=== PATIENT | male | born 1960 | race Caucasian/White ===

== ENCOUNTER 2021-08-08 12:52 | Inpatient (IN) | payer OTHER, SELFPAY ==
--- NOTE | ~2021-08-08 | XR_ITS ---
EXAMINATION: XR finger 1st RT min 2V EXAM DATE: 08/08/2021 13:34 INDICATION: Smashing Injury, Redness, Swelling. TECHNIQUE: Right 1st finger frontal, lateral and oblique projections obtained and reviewed. There ar e no prior studies for comparison. FINDINGS: There are no acute fractures or dislocations identified. There is no subcutaneous gas. T he soft tissue is unremarkable. There are no radiopaque foreign bodies. IMPRESSION: No acute osseous findings. Reviewed, dictated and finalized at location A. OLOGY NURSE IMPRESSION: No acute osseous findings.
--- NOTE | ~2021-08-08 | US_ITS ---
EXAMINATION: US abdomen limited DATE: 08/09/2021 08:34 INDICATION: Abnormal liver function tests. TECHNIQUE: Multiple grayscale and Doppler ultrasound images of the abdomen were obtained. COMPARISON: None FINDINGS: The visualized portions of the head of the pancreas are normal. The liver is normal without focal lesion. No liver surface nodularity. There is normal flow in main portal vein. The gallbladde r is normal in size. No gallstones or gallbladder wall thickening. There was no sonographic Zayas si gn. The common duct is normal and measures 5 mm. IMPRESSION: 1. Normal right upper quadrant ultrasound. Reviewed, dictated and finalized at location A. ERGARTNER
[2021-08-08 12:55] VITALS: BP 150/78; PULSE 111; RESP 20; TEMP 36.5; O2SAT 100
--- NOTE | 2021-08-08 13:19 | ED.UPPEXIN ---
HPI - Extremity Injury (Upper) General Chief Complaint: Extremity Injury, Upper Stated Complaint: smashed thumb Time Seen by Provider: 08/08/21 13:06 Source: patient Mode of arrival: ambulatory Limitations: no limitations History of Present Illness HPI narrative: Patient is 61 years old had right thumb injury from a pile of wound lost their arrangement and somehow his finger got stuck. 4 days ago, 1 day later the thumb started getting swollen with severe pain. Today have some discharge from the thumb and red streak going all the way up to the armpit. Patient is not diabetic, does not take medicine at home, uses marijuana, drink alcohol Related Data Allergies Allergy/AdvReac Type Severity Reaction Status Date / Time No Known Allergies Allergy Verified 08/08/21 13:11 Review of Systems Review of Systems: CONSTITUTIONAL: Denies fever, chills, or sweats. EYES: Denies visual changes, redness, or discharge. ENT: Denies rhinorrhea, congestion, sore throat, or otalgia. CARDIOVASCULAR: Denies chest pain, palpitations, or edema. RESPIRATORY: Denies cough or dyspnea. GASTROINTESTINAL: Denies abdominal pain, nausea, vomiting, or diarrhea. GENITOURINARY: Denies dysuria or hematuria. SKIN: Denies rash or itching. MUSCULOSKELETAL: Denies back pain, joint pain, or myalgia. NEUROLOGIC: Denies headache, numbness, or weakness. PSYCHIATRIC: Denies anxiety or depression. [facility] Past Medical History Medical History No pertinent past medical history Surgical History Surgical History No pertinent past surgical history Family History Family History (Updated 08/08/21 @ 15:59 by BRIANA Adames) Mother Diabetes mellitus Heart disease Hypertension Father Diabetes mellitus Heart disease Hypertension Social History Social History (Updated 08/08/21 @ 16:04 by BRIANA Adames) Social History: Patient lives in the house he grew up in and is currently fixing it up. He lives alone and has no pets. He does dabble in a lot of social activities. He admits to drink beer about 24 beers a week or more. He also smoke marijuana every day about 1 OZ a month, and uses other fun drugs like speed and others about monthly or holidays. He did state that he usually gets together with his friends after work. He designates his sister as his surrogate, and wishes to be a full code. Smoking status: Never smoker Alcohol intake: current Drinks per week: 24 Alcohol use details: about every other day 6+ Substance use: current Substance use type: marijuana Other substance usage details: Speed and other monthly/holidays. 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 Gender identity (if verbalized by the patient): Male Sexual Orientation (if Verbalized by the Patient): Straight or Heterosexual Spiritual care concerns: No Agree to blood products: Yes Exam Narrative: General appearance: Well-developed, well-nourished Skin: Normal color, right thumb showed diffuse swelling, erythema, serosanguineous discharge dorsally, erythematous changes, red streaks going up to the right arm PIT Head: Normocephalic, nontraumatic Eyes: Clear conjunctiva ENT: Oropharynx normal, ears normal, nose normal Neck: Supple, nontender Chest and respiratory: Airway patent, no respiratory distress, no accessory muscle use Heart: Regular rate/rhythm Abdomen: Soft, nontender, no organomegaly, quiet bowel sounds Vascular: Normal peripheral pulses, normal capillary refill. Musculoskeletal: Normal range of motion, nontender back Neurologic: Alert and oriented ?3, DATABASE SECURITY EXPERT is normal as tested, no gross motor deficit
[2021-08-08 13:21] LABS: Basophils Percent Auto 0.3 % (0.2-1.2); Eosinophils Absolute Auto 0.1 K/mm3 (0-0.3); Eosinophils Percent Auto 0.9 % (0-4.4); Hematocrit 48.9 % (42.0-52.0); Hemoglobin 16.6 g/dL (14.0-18.0); Immature Granulocyte Absolute 0.04 K/mm3 (0.00-0.031); Immature Granulocyte Percent A 0.3 % (0-0.5); Lymphocytes Absolute Auto 1.52 K/mm3 (0.9-3.2); Lymphocytes Percent Auto 12.8 % (18.3-44.2); Mean Corpuscular HGB Conc 33.9 g/dl (32-36); Mean Corpuscular Hemoglobin 32.7 pg (26-34); Mean Corpuscular Volume 96.3 fl (80-100); Mean Platelet Volume 9.9 fl (7.4-10.4); Monocytes Absolute Auto 1.2 K/mm3 (0.1-0.6); Monocytes Percent Auto 9.8 % (2.6-8.5); Neutrophils Percent Auto 75.9 % (45.5-73.1); Platelet Count Result 145 k/mm3 (150-375); Red Blood Count 5.08 M/mm3 (4.6-6.20); Red Cell Distribution Width 13.5 % (11.5-14.5); White Blood Count 11.9 K/mm3 (4.5-10.0)
[2021-08-08 13:31] LABS: Alanine Aminotransferase 112 U/L (4-50); Albumin Level 4.4 g/dL (3.5-5.1); Alkaline Phosphatase 92 U/L (38-126); Anion Gap 9 mmol/L (8-16); Aspartate Amino Transferase 115 U/L (17-59); Bilirubin,Total 0.6 mg/dL (0.2-1.3); Blood Urea Nitrogen 15 mg/dL (9-20); Calcium 8.4 mg/dL (8.4-10.2); Carbon Dioxide 28 mmol/L (22-30); Chloride 98 mmol/L (98-107); Estimated CRCL calculation 92 ml/min; Estimated Glomerular Filt Rate > 60; Glucose 122 mg/dL (65-110); Potassium 3.8 mmol/L (3.4-5.0); Sodium 135 mmol/L (137-145)
[2021-08-08] MEDS: TETANUS,DIPHTHERIA,AC PERTUSSIS ADULT (0.5 ML) BOOSTRIX IM (15:09)
--- NOTE | 2021-08-08 15:50 | PM.IMHP ---
H&P: HPI History of Present Illness Date/Time: 08/08/21 15:15 Chief Complaint: Thumb pain with radiation Narrative: Patient is a 61 year old male with no significant medical history that present to the ED for evaluation of the left thumb. He stated that he was working on his house and remodelling. He was moving some 2x4 when he smashed his thumb between two boards. He stated that it really just started to swell up, and to relieve the pressure he was taking a needle that he previously popped a pimple on his knee with dipped in Neosporin and would poke it into his finger to relieve the pressure. He stated that it was doing ok, until about when it was appearing worse. He stated that it started with severe pain. He noticed that he was developing redness tracking up his arm into the armpit and down starting on the chest. He was experiencing some sweats and chills lately. He currently rate his pain a 9/10 and it feels like needles are going in and out of his thumb. He has not taken anything or treating it with anything. He denies chest pain, shortness of breath, nausea, vomiting, diarrhea, constipation, weakness, fatigue, cough, dizziness, lightheadedness, numbness or tingling. Patient will be admitted to the hospital service under observation Review of Systems Review of Systems: All systems reviewed & are unremarkable except as noted in HPI and below PMFSH Past Medical History Medical History No pertinent past medical history Surgical History Surgical History No pertinent past surgical history Family History Family History Mother Diabetes mellitus Heart disease Hypertension Father Diabetes mellitus Heart disease Hypertension Social History Social History (Updated 08/08/21 @ 16:04 by BRIANA Adames) Social History: Patient lives in the house he grew up in and is currently fixing it up. He lives alone and has no pets. He does dabble in a lot of social activities. He admits to drink beer about 24 beers a week or more. He also smoke marijuana every day about 1 OZ a month, and uses other fun drugs like speed and others about monthly or holidays. He did state that he usually gets together with his friends after work. He designates his sister as his surrogate, and wishes to be a full code. Smoking status: Never smoker Alcohol intake: current Drinks per week: 24 Alcohol use details: about every other day 6+ Substance use: current Substance use type: marijuana Other substance usage details: Speed and other monthly/holidays. 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 Gender identity (if verbalized by the patient): Male Sexual Orientation (if Verbalized by the Patient): Straight or Heterosexual Spiritual care concerns: No Agree to blood products: Yes Meds Home Medications and Allergies Allergies Allergy/AdvReac Type Severity Reaction Status Date / Time No Known Allergies Allergy Verified 08/08/21 13:11 Vital Signs Vital Signs - 24 hr 08/08/21 12:55 Temperature 97.7 F Pulse Rate 111 H Respiratory Rate 20 Blood Pressure 150/78 H Pulse Oximetry 100 Exam Const: General: cooperative, no acute distress, well developed, alert, awake and uncomfortable Nutritional Appearance: average body habitus and well nourished Orientation/consciousness: oriented to person, oriented to place, oriented to time and patient oriented x3 Limitations: physical limitations (finger pain) HENMT: Head: normal to inspection Ears: hearing grossly normal bilaterally General nose exam: Normal external nose present Mouth: Yes Normal oral an
[2021-08-08 16:00] VITALS: BP 109/68; PULSE 89; RESP 20; TEMP 36.3; O2SAT 94
--- NOTE | 2021-08-08 16:10 | ECG_ITS ---
Measurements Intervals [place] Rate: 63 P: 55 CA: 170 QRS: 29 QRSD: 134 T: 20 QT: 405 QTc: 417 Interpretive Statements SINUS RHYTHM POSSIBLE LEFT ATRIAL ENLARGEMENT RIGHT BUNDLE BRANCH BLOCK BASELINE ARTIFACT- V4 ABNORMAL ECG Electronically Signed On 08-08-2021 20:18:23 CONCRETE PRODUCTS MACHINE OPERATOR by Ramin Cruz D.O.
--- NOTE | 2021-08-08 18:49 | PC.NURSE ---
This patient, Nadine Velarde, was admitted to 3 [facility] Surg Room 325-01. Patient/family oriented to hospital policies and general routines including ID bracelet, bed and alarms, visiting hours, pain management, procedures, bathroom and other care routines, personal items, smoking policy, room service/diet, and visiting hours. Information on how to activate the Rapid Response Team has been discussed. Patient/Family are encouraged to report perceived risks to care and to ask questions if they do not understand what they are told or what they should do.
[2021-08-08 18:50] VITALS: BMI 30.4
[2021-08-08 19:38] VITALS: BP 125/85; PULSE 88; TEMP 36.3; O2SAT 94
[2021-08-08 20:46] LABS: Hepatitis B Surface Antigen Negative (Negative)
[2021-08-08 20:51] LABS: HAV RESULT Negative (Negative); Hepatitis B Core IgM Result Negative (Negative)
[2021-08-08 21:03] LABS: Hepatitis C Virus Antibody Negative (Negative)
[2021-08-08 21:56] VITALS: BP 124/68; PULSE 97; RESP 22; TEMP 36.8; O2SAT 95
[2021-08-09 05:40] VITALS: BP 118/79; PULSE 69; RESP 18; TEMP 36.3; O2SAT 95
[2021-08-09 06:05] LABS: Basophils Absolute Auto 0.1 K/mm3 (0.0-0.1); Basophils Percent Auto 0.6 % (0.2-1.2); Eosinophils Absolute Auto 0.2 K/mm3 (0-0.3); Eosinophils Percent Auto 2.7 % (0-4.4); Hematocrit 44.1 % (42.0-52.0); Hemoglobin 15.4 g/dL (14.0-18.0); Immature Granulocyte Absolute 0.04 K/mm3 (0.00-0.031); Immature Granulocyte Percent A 0.5 % (0-0.5); Lymphocytes Absolute Auto 1.53 K/mm3 (0.9-3.2); Lymphocytes Percent Auto 17.3 % (18.3-44.2); Mean Corpuscular HGB Conc 34.9 g/dl (32-36); Mean Corpuscular Hemoglobin 32.6 pg (26-34); Mean Corpuscular Volume 93.4 fl (80-100); Mean Platelet Volume 9.9 fl (7.4-10.4); Monocytes Absolute Auto 1.1 K/mm3 (0.1-0.6); Monocytes Percent Auto 12.7 % (2.6-8.5); Neutrophils Absolute Auto 5.9 K/mm3 (1.3-6.7); Neutrophils Percent Auto 66.2 % (45.5-73.1); Platelet Count Result 171 k/mm3 (150-375); Red Blood Count 4.72 M/mm3 (4.6-6.20); Red Cell Distribution Width 13.5 % (11.5-14.5); White Blood Count 8.8 K/mm3 (4.5-10.0)
[2021-08-09 06:18] LABS: Alanine Aminotransferase 145 U/L (4-50); Albumin Level 3.6 g/dL (3.5-5.1); Alkaline Phosphatase 100 U/L (38-126); Anion Gap 3 mmol/L (8-16); Aspartate Amino Transferase 112 U/L (17-59); Bilirubin,Total 0.4 mg/dL (0.2-1.3); Blood Urea Nitrogen 13 mg/dL (9-20); Carbon Dioxide 28 mmol/L (22-30); Chloride 104 mmol/L (98-107); Estimated CRCL calculation 105 ml/min; Estimated Glomerular Filt Rate > 60; Glucose 95 mg/dL (65-110); Lactic Acid Reflex 0.6 mmol/L (0.7-2.1); Magnesium 2.1 mg/dL (1.6-2.3); Potassium 4.1 mmol/L (3.4-5.0); Sodium 135 mmol/L (137-145)
[2021-08-09 08:00] VITALS: PULSE 78; O2SAT 95
[2021-08-09] MEDS: THIAMINE HCL 100 MG TABLET PO (09:04)
[2021-08-09] MEDS: FOLIC ACID 1 MG TABLET PO (09:04)
--- NOTE | 2021-08-09 10:45 | PM.IMPN ---
Progress Note: A&P Assessment and Plan (1) Thumb injury: Code(s): S69.90XA - Unspecified injury of unspecified wrist, hand and finger(s), initial encounter Status: Acute Assessment and Plan: Right thumb injury from 2x4s Purulent drainage Red tracking up to the armpit however it does not go onto the chest that is warm to touch Blood cultures pending Wound culture found moderate WBC and mixed bacterial sweetie Wound care consult Dr. Charles consulted thank you for your help Vanc and cefepime on board WBC 8.8 Trend wound findings. (2) Transaminitis: Code(s): R74.01 - Elevation of levels of liver transaminase levels Status: Acute Assessment and Plan: AST/ALT 112/145 Hep panel negative RUQ ultrasound Normal right upper quadrant ultrasound. (3) Tachycardia: Code(s): R00.0 - Tachycardia, unspecified Status: Acute Assessment and Plan: HR is 78 Probably pain induced Could be an underlying arrhythmia EKG ordered (4) HTN (hypertension): Code(s): I10 - Essential (primary) hypertension Status: Acute Assessment and Plan: BP is 118/79 Trend BP No history Consider adding therapy if indicated (5) ETOH abuse: Code(s): F10.10 - Alcohol abuse, uncomplicated Status: Acute Assessment and Plan: Roughly 24 drinks a week Folic acid and thiamine ordered [facility] Librium Ativan PRN (6) Marijuana abuse: Code(s): F12.10 - Cannabis abuse, uncomplicated Status: Acute Assessment and Plan: Daily use Cessation education given Time Spent With Patient Time with patient: Greater than 35 minutes Subjective Date/time seen: 08/09/21 10:45 Interval history: Date/Time: 08/08/21 15:15 Narrative: Patient is a 61 year old male with no significant medical history that present to the ED for evaluation of the left thumb. He stated that he was working on his house and remodelling. He was moving some 2x4 when he smashed his thumb between two boards. He stated that it really just started to swell up, and to relieve the pressure he was taking a needle that he previously popped a pimple on his knee with dipped in Neosporin and would poke it into his finger to relieve the pressure. He stated that it was doing ok, until about when it was appearing worse. He stated that it started with severe pain. He noticed that he was developing redness tracking up his arm into the armpit and down starting on the chest. He was experiencing some sweats and chills lately. He currently rate his pain a 9/10 and it feels like needles are going in and out of his thumb. He has not taken anything or treating it with anything. He denies chest pain, shortness of breath, nausea, vomiting, diarrhea, constipation, weakness, fatigue, cough, dizziness, lightheadedness, numbness or tingling. Date/Time 08/09/22 1045 Patient's main concern was taking a shower. He did state that his thumb was a 10/10. Wound nurse was in the room and there was a lot of purulent drainage from the thumb. He did deny any chest pain, shortness of breath, nausea, vomiting, diarrhea, constipation, weakness or fatigue. He did also state that he wanted something to poke into the wound to relieve him of the pressure. He is currently sitting on the side of the bed with no complaints other than back pain. Red track has went down. Review of Systems Review of Systems: All systems reviewed & are unremarkable except as noted in HPI and below Exam Const: General: cooperative, no acute distress, well developed, alert, awake and uncomfortable Nutritional Appearance: average body habitus and well nourished Orientation/consciousness: oriented to person, oriented to place, oriented to time and patient oriented x3 Limitations: physical limitations (finger pain) HENMT: Head: normal to inspection Ears: hearing grossly blaise
[2021-08-09 14:00] VITALS: BP 121/82; PULSE 88; RESP 18; TEMP 36.6; O2SAT 98
--- NOTE | 2021-08-09 18:05 | WPDCN ---
Assessment and Plan Assessment and plan (1) Laceration of right thumb with infection: Code(s): S61.011A - Laceration without foreign body of right thumb without damage to nail, initial encounter; L08.9 - Local infection of the skin and subcutaneous tissue, unspecified Status: Acute Assessment and Plan: Will elevate or remove the thumb nail, at the bedside, to promote drainage and dressing care. Continue vanco. Mepilex Ag dressing daily. HPI Data of Consult Date/Time: 08/09/21 18:05 Requesting Physician: David Baca MD Primary Care Provider: TURNING MACHINE OPERATOR PHYSICIAN Consult Narrative Narrative: Nadine Velarde is a 61 year old male with an infection in his right thumb. This the 5th post injury day and the 4th since pain and swelling began. Cause was a crush laceration from a piece of timber that rolled onto his thumb. He tried to clean and treat this himself but presented with drainage and lymphangitis last tight. His WBC was aroungd 12 and has normalized after IV vancomycin was started. The thumb is draining form the dorsal nail fold area where the skin is macerated and bruised. The nail is present but there appears to be pus beneath it that can be drained out the laceration with pressure at the tip. The thumb is swollen and macerated at the dorsal distal phalanx. ROM is intact. Generally well perfused. Lymphangitis up to the axilla with lymphadenopathy. X-ray did not reveal any bone injury. [facility] Past Medical History Medical History No pertinent past medical history Surgical History Surgical History No pertinent past surgical history Family History Family History Mother Diabetes mellitus Heart disease Hypertension Father Diabetes mellitus Heart disease Hypertension Social History Social History (Updated 08/08/21 @ 16:04 by BRIANA dAames) Social History: Patient lives in the house he grew up in and is currently fixing it up. He lives alone and has no pets. He does dabble in a lot of social activities. He admits to drink beer about 24 beers a week or more. He also smoke marijuana every day about 1 OZ a month, and uses other fun drugs like speed and others about monthly or holidays. He did state that he usually gets together with his friends after work. He designates his sister as his surrogate, and wishes to be a full code. Smoking status: Never smoker Alcohol intake: current Drinks per week: 24 Alcohol use details: about every other day 6+ Substance use: current Substance use type: marijuana Other substance usage details: Speed and other monthly/holidays. 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 Gender identity (if verbalized by the patient): Male Sexual Orientation (if Verbalized by the Patient): Straight or Heterosexual Spiritual care concerns: No Agree to blood products: Yes Meds Home Medications and Allergies Allergies Allergy/AdvReac Type Severity Reaction Status Date / Time No Known Allergies Allergy Verified 08/08/21 13:11 Vital Signs Vital Signs - 24 hr 08/08/21 19:38 08/08/21 21:56 08/09/21 05:40 Temperature 97.4 F L 98.3 F 97.4 F L Pulse Rate 88 97 69 Pulse Rate [Right Radial] Respiratory Rate 22 H 18 Blood Pressure 125/85 124/68 118/79 Pulse Oximetry 94 95 95 08/09/21 08:00 08/09/21 14:00 Temperature 98 F Pulse Rate 88 Pulse Rate [Right Radial] 78 Respiratory Rate 18 Blood Pressure 121/82 Pulse Oximetry 95 98 Results Labs CBC & Chem 7: 08/09/21 05:42 08/09/21 05:42 Labs: Short CBC 08/09/21 Range/Units 05:
--- NOTE | 2021-08-09 18:34 | W.PM.PROC2 ---
Procedure Note - Detailed Date of Procedure 08/09/21 Pre-op Diagnosis Right thumb infection Post-op Diagnosis same Procedure Performed Removal of right thumbnail for drainage Surgeon Konrad Charles MD Anesthesia local Description of Procedure The patient was in his hospital bed. He had signed consent for removal of the nail and drainage of purulence. The digit was blocked with 1% lidocaine with epinephrine. No prepping was done otherwise. Adequate anesthesia was obtained and the nail was removed with blunt separation of scissors under the nail plate. Removal of the nail from the macerated nail bed was accomplished without difficulty. No culture was sent. There was very little bleeding. The contused and macerated skin was copiously washed with saline wet gauze. This included under the nail fold. No bone was exposed. After cleaning the site a dressing was applied with Mepilex Ag and gauze. Tolerated well Drains No Packing No Pathology none sent Condition stable Disposition no change
[2021-08-09 20:00] VITALS: PULSE 70
[2021-08-09 21:44] VITALS: BP 113/70; PULSE 70; RESP 16; TEMP 36.8; O2SAT 99
[2021-08-10] VITALS (7 sets, daily range): BP systolic 113–120; BP diastolic 72–82; PULSE 60–99; RESP 16–20; TEMP 36.4–36.6; O2SAT 94–99
[2021-08-10 05:53] LABS: Basophils Absolute Auto 0.1 K/mm3 (0.0-0.1); Basophils Percent Auto 0.7 % (0.2-1.2); Eosinophils Absolute Auto 0.3 K/mm3 (0-0.3); Eosinophils Percent Auto 3.5 % (0-4.4); Hematocrit 46.8 % (42.0-52.0); Hemoglobin 15.9 g/dL (14.0-18.0); Immature Granulocyte Absolute 0.03 K/mm3 (0.00-0.031); Immature Granulocyte Percent A 0.4 % (0-0.5); Lymphocytes Absolute Auto 1.77 K/mm3 (0.9-3.2); Lymphocytes Percent Auto 24.7 % (18.3-44.2); Mean Corpuscular Hemoglobin 32.3 pg (26-34); Mean Corpuscular Volume 95.1 fl (80-100); Mean Platelet Volume 9.7 fl (7.4-10.4); Monocytes Absolute Auto 0.8 K/mm3 (0.1-0.6); Monocytes Percent Auto 10.5 % (2.6-8.5); Neutrophils Absolute Auto 4.3 K/mm3 (1.3-6.7); Neutrophils Percent Auto 60.2 % (45.5-73.1); Platelet Count Result 196 k/mm3 (150-375); Red Blood Count 4.92 M/mm3 (4.6-6.20); Red Cell Distribution Width 13.7 % (11.5-14.5); White Blood Count 7.2 K/mm3 (4.5-10.0)
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
[2021-08-10 06:09] LABS: Alanine Aminotransferase 163 U/L (4-50); Albumin Level 3.8 g/dL (3.5-5.1); Alkaline Phosphatase 114 U/L (38-126); Anion Gap 3 mmol/L (8-16); Aspartate Amino Transferase 100 U/L (17-59); Bilirubin,Total 0.6 mg/dL (0.2-1.3); Blood Urea Nitrogen 16 mg/dL (9-20); Calcium 8.6 mg/dL (8.4-10.2); Carbon Dioxide 27 mmol/L (22-30); Chloride 105 mmol/L (98-107); Estimated CRCL calculation 105 ml/min; Estimated Glomerular Filt Rate > 60; Glucose 97 mg/dL (65-110); Magnesium 2.2 mg/dL (1.6-2.3); Potassium 4.4 mmol/L (3.4-5.0); Sodium 135 mmol/L (137-145)
[2021-08-10] MEDS: MORPHINE SULFATE (*CRX) 4 MG/ML INJ (06:19)
[2021-08-10] MEDS: HYDROcodone/acetaminophen (*CRX) 5-325 MG TABLET 1 TAB PO ×3 (06:31→18:09)
[2021-08-10] MEDS: chlordiazePOXIDE (*CRX) 25 MG CAPSULE PO (06:31)
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
--- NOTE | 2021-08-10 09:30 | P.PNIM_ITS ---
Progress Note: A&P Assessment and Plan (1) Thumb injury: Code(s): S69.90XA - Unspecified injury of unspecified wrist, hand and finger(s), initial encounter Status: Acute Assessment and Plan: * Right thumb injury from 2x4s * Purulent drainage * Red tracking up to the armpit however it does not go onto the chest that is warm to touch * Blood cultures pending * Wound culture found moderate WBC and mixed bacterial sweetie * Wound care consult * Dr. Charles consulted thank you for your help * Vanc and cefepime on board * WBC 7.2 * Trend wound findings. (2) Transaminitis: Code(s): R74.01 - Elevation of levels of liver transaminase levels Status: Acute Assessment and Plan: * AST/ALT 100/163 * Hep panel negative * RUQ ultrasound Normal right upper quadrant ultrasound. (3) Tachycardia: Code(s): R00.0 - Tachycardia, unspecified Status: Acute Assessment and Plan: * HR is 60 * Probably pain induced * Could be an underlying arrhythmia * EKG ordered (4) HTN (hypertension): Code(s): I10 - Essential (primary) hypertension Status: Acute Assessment and Plan: * BP is 116/72 * Trend BP * No history * Consider adding therapy if indicated (5) ETOH abuse: Code(s): F10.10 - Alcohol abuse, uncomplicated Status: Acute Assessment and Plan: * Roughly 24 drinks a week * Folic acid and thiamine ordered * CIWA * Librium * Ativan PRN (6) Marijuana abuse: Code(s): F12.10 - Cannabis abuse, uncomplicated Status: Acute Assessment and Plan: * Daily use * Cessation education given Subjective Date/time seen: 08/10/2130 Interval history: Date/Time: 08/08/21 15:15 Narrative: Patient is a 61 year old male with no significant medical history that present to the ED for evaluation of the left thumb. He stated that he was working on his house and remodelling. He was moving some 2x4 when he smashed his thumb between two boards. He stated that it really just started to swell up, and to relieve the pressure he was taking a needle that he previously popped a pimple on his knee with dipped in Neosporin and would poke it into his finger to relieve the pressure. He stated that it was doing ok, until about w hen it was appearing worse. He stated that it started with severe pain. He noticed that he was developing redness tracking up his arm into the armpit and down starting on the chest. He was experiencing some sweats and chills lately. He currently rate his pain a 9/10 and it feels like needles are going in and out of his thumb. He has not taken anything or treating it with anything. He denies chest pain, shortness of breath, nausea, vomiting, diarrhea, constipation, weakness, fatigue, cough, dizziness, lightheadedness, numbness or tingling. Date/Time 08/09/21 1045 Patient's main concern was taking a shower. He did state that his thumb was a 10/10. Wound nurse was in the room and there was a lot of purulent drainage from the thumb. He did deny any chest pain, shortness of breath, nausea, vomiting, diarrhea, constipation, weakness or fatigue. He did also state that he wanted something to poke into the wound to relieve him of the pressure. He is currently sitting on the side of the bed with no complaints other than back pain. Red track has went down. Date/Time 08/09/21 0966 Patient was pretty upset today. Patient
[2021-08-10] MEDS: THIAMINE HCL 100 MG TABLET PO (09:36)
[2021-08-10] MEDS: FOLIC ACID 1 MG TABLET PO (09:36)
[2021-08-10 14:12] LABS: Vancomycin Trough 12.3 ug/mL (10.0-20.0)
[2021-08-10] MEDS: KETOROLAC 30 MG/ML VIAL (*BKC) IV PUSH (15:58)
[2021-08-11 05:26] VITALS: BP 105/71; PULSE 55; RESP 16; TEMP 36.4; O2SAT 97
[2021-08-11 05:57] LABS: Basophils Absolute Auto 0.1 K/mm3 (0.0-0.1); Basophils Percent Auto 0.9 % (0.2-1.2); Eosinophils Absolute Auto 0.3 K/mm3 (0-0.3); Eosinophils Percent Auto 5.3 % (0-4.4); Hematocrit 42.6 % (42.0-52.0); Hemoglobin 14.4 g/dL (14.0-18.0); Immature Granulocyte Absolute 0.09 K/mm3 (0.00-0.031); Immature Granulocyte Percent A 1.4 % (0-0.5); Lymphocytes Absolute Auto 2.02 K/mm3 (0.9-3.2); Lymphocytes Percent Auto 31.7 % (18.3-44.2); Mean Corpuscular HGB Conc 33.8 g/dl (32-36); Mean Corpuscular Hemoglobin 32.8 pg (26-34); Mean Platelet Volume 9.5 fl (7.4-10.4); Monocytes Absolute Auto 0.8 K/mm3 (0.1-0.6); Monocytes Percent Auto 11.8 % (2.6-8.5); Neutrophils Absolute Auto 3.1 K/mm3 (1.3-6.7); Neutrophils Percent Auto 48.9 % (45.5-73.1); Platelet Count Result 202 k/mm3 (150-375); Red Blood Count 4.39 M/mm3 (4.6-6.20); Red Cell Distribution Width 13.4 % (11.5-14.5); White Blood Count 6.4 K/mm3 (4.5-10.0)
[2021-08-11 06:07] LABS: Alanine Aminotransferase 102 U/L (4-50); Albumin Level 3.4 g/dL (3.5-5.1); Alkaline Phosphatase 90 U/L (38-126); Anion Gap 5 mmol/L (8-16); Aspartate Amino Transferase 50 U/L (17-59); Bilirubin,Total 0.1 mg/dL (0.2-1.3); Blood Urea Nitrogen 20 mg/dL (9-20); Calcium 8.3 mg/dL (8.4-10.2); Carbon Dioxide 26 mmol/L (22-30); Chloride 106 mmol/L (98-107); Estimated CRCL calculation 92 ml/min; Estimated Glomerular Filt Rate > 60; Glucose 121 mg/dL (65-110); Sodium 137 mmol/L (137-145)
[2021-08-11 08:18] LABS: Glucose Point of Care 100 mg/dl (65-105)
[2021-08-11] MEDS: THIAMINE HCL 100 MG TABLET PO (08:19)
[2021-08-11] MEDS: FOLIC ACID 1 MG TABLET PO (08:19)
[2021-08-11] MEDS: HYDROcodone/acetaminophen (*CRX) 5-325 MG TABLET 1 TAB PO ×3 (08:22→20:05)
--- NOTE | 2021-08-11 09:58 | WPDPN ---
Progress Note: A&P Assessment and Plan (1) Laceration of right thumb with infection: Code(s): S61.011A - Laceration without foreign body of right thumb without damage to nail, initial encounter; L08.9 - Local infection of the skin and subcutaneous tissue, unspecified Status: Acute Assessment and Plan: Improving. Will switch to oral antibiotics when discharged. Possibly tomorrow. Will continue with current wound care. He will follow up with Dr Charles outpatient. Time Spent With Patient Time with patient: less than 15 minutes Subjective Date/time seen: 08/11/21 09:58 Cellulitis/lymphangiitis resolving on current treatment. Pain decreased, still very tender at raw nail bed. Culture: Group A Strep, Sens. pending. Likely sensitive to cephalosporins. Objective Data Vital Signs Vital Signs: Vital Signs - 24 hr 08/10/21 14:00 08/10/21 19:41 08/10/21 21:58 Temperature 97.6 F 97.5 F L Pulse Rate 99 93 Respiratory Rate 20 16 Blood Pressure 113/76 120/82 Pulse Oximetry 97 99 98 08/11/21 05:26 Temperature 97.6 F Pulse Rate 55 L Respiratory Rate 16 Blood Pressure 105/71 Pulse Oximetry 97 Intake/Output Intake/Output: Intake & Output 08/08/21 08/09/21 08/10/21 08/11/21 23:59 23:59 23:59 23:59 Intake Total 650 2690 3380 1300 Output Total 600 Balance 650 2690 2780 1300 Meds/Results Medications: Active Medications Generic Name Dose Route Start Last Admin Trade Name Freq PRN Reason Stop Dose Admin Acetaminophen 1,000 mg 08/10/21 15:38 Acetaminophen 500 Mg Tablet PO Q6H PRN Mild Pain (1-3) or Fever Hydrocodone Bitart/Acetaminophen 1 tab 08/10/21 05:56 08/11/21 08:22 Hydrocodone/Acetaminophen (*Crx) 5-325 Mg Tablet PO 1 tab Q6H PRN Administration Pain Rated 4-6 Chlordiazepoxide HCl 25 mg 08/10/21 05:59 08/10/21 06:31 Chlordiazepoxide (*Crx) 25 Mg Capsule PO 25 mg Q6H PRN Administration Withdrawal Folic Acid 1 mg 08/09/21 09:00 08/11/21 08:19 Folic Acid 1 Mg Tablet PO 1 mg DAILY SAMUEL Administration Vancomycin HCl 1,500 mg in 500 mls @ 333.333 mls/hr 08/09/21 02:00 08/11/21 04:23 Vancomycin 1,500 Mg/D5w 500 Ml IVPB Infused Q12H SAMUEL Infusion Cefepime HCl 1 gm in 50 mls @ 100 mls/hr 08/09/21 02:00 08/11/21 09:38 Maxipime 1 Gm/D5w 50 Ml IVPB 100 mls/hr Q8H SAMUEL Administration Morphine Sulfate 2 mg 08/10/21 15:37 Morphine Sulfate (*Crx) 2 Mg/Ml Inj IV PUSH Q4H PRN Pain Rated 7-10 Ondansetron HCl 4 mg 08/08/21 15:44 Ondansetron Inj 4 Mg/2 Ml Vial IV PUSH Q4H PRN Nausea Silver 1 each 08/09/21 09:00 08/10/21 14:23 Silver Foam Band (Mepilex Ag 4x4) Bandage TOPICAL 1 each DAILY SAMUEL Administration Thiamine HCl 100 mg 08/09/21 09:00 08/11/21 08:19 Thiamine Hcl 100 Mg Tablet PO 100 mg QAM SAMUEL Administration Radiology Results: ITS Impressions Finger X-Ray 08/08/21 13:50 IMPRESSION: No acute osseous findings. Abdomen Ultrasound 08/09/21 08:42 IMPRESSION: 1. Normal right upper quadrant ultrasound. Labs Labs: Laboratory Results - last 24 hr 08/10/21 08/11/21 08/11/21 12:54 05:35 05:35 WBC 6.4 RBC 4.39 L Hgb 14.4 Hct 42.6 MCV 97.0 MCH 32.8 MCHC 33.8 RDW 13.4 Plt Count 202 MPV 9.5 Immature Gran % (Auto) 1.4 H Neut % (Auto) 48.9 Lymph % (Auto) 31.7 [place] % (Auto) 11.8 H Eos % (Auto) 5.3 H Baso % (Auto) 0.9 Lymph # (Auto) 2.02 [place] # (Auto) 0.8 H Eos # (Auto) 0.3 Baso # (Auto) 0.1 Abs Immat Gran (auto) 0.09 H Absolute Neuts (auto) 3.1 Absolute Nucleated RBC 0.0 Nucleated RBC % 0.0 Sodium 137 Potassium 4.0 Chloride 106 Carbon Dioxide 26 Anion Gap 5 L BUN 20 Creatinine 0.80 Estim Creat Clear Calc 92 Estimated GFR > 60 Glucose 121 H POC Capillary Glucose Calcium 8.3 L Magnesium 2.0 Ferritin T
[2021-08-11] MEDS: MORPHINE SULFATE (*CRX) 2 MG/ML INJ IV PUSH (11:20)
--- NOTE | 2021-08-11 11:22 | WPDPN ---
Progress Note: A&P Assessment and Plan (1) Laceration of right thumb with infection: Code(s): S61.011A - Laceration without foreign body of right thumb without damage to nail, initial encounter; L08.9 - Local infection of the skin and subcutaneous tissue, unspecified Status: Acute Assessment and Plan: Improvement on antibiotics and debridement as expected. Daily dressing change. Continue IV antibiotics. Check on culture results. Time Spent With Patient Time with patient: 15 - 25 minutes Subjective Date/time seen: 08/10/21 11:22 POD 1 removal of right thumb nail. Dressing change today. Erythema diminished as well as decrease in right axillary lymph node tenderness. No javier pus at dorsal thumb. Granulation tissue starting. ROM intact. Objective Data Vital Signs Vital Signs: Vital Signs - 24 hr 08/10/21 14:00 08/10/21 19:41 08/10/21 21:58 Temperature 97.6 F 97.5 F L Pulse Rate 99 93 Respiratory Rate 20 16 Blood Pressure 113/76 120/82 Pulse Oximetry 97 99 98 08/11/21 05:26 Temperature 97.6 F Pulse Rate 55 L Respiratory Rate 16 Blood Pressure 105/71 Pulse Oximetry 97 Intake/Output Intake/Output: Intake & Output 08/08/21 08/09/21 08/10/21 08/11/21 23:59 23:59 23:59 23:59 Intake Total 650 2690 3380 1300 Output Total 600 Balance 650 2690 2780 1300 Meds/Results Medications: Active Medications Generic Name Dose Route Start Last Admin Trade Name Freq PRN Reason Stop Dose Admin Acetaminophen 1,000 mg 08/10/21 15:38 Acetaminophen 500 Mg Tablet PO Q6H PRN Mild Pain (1-3) or Fever Hydrocodone Bitart/Acetaminophen 1 tab 08/10/21 05:56 08/11/21 08:22 Hydrocodone/Acetaminophen (*Crx) 5-325 Mg Tablet PO 1 tab Q6H PRN Administration Pain Rated 4-6 Chlordiazepoxide HCl 25 mg 08/10/21 05:59 08/10/21 06:31 Chlordiazepoxide (*Crx) 25 Mg Capsule PO 25 mg Q6H PRN Administration Withdrawal Folic Acid 1 mg 08/09/21 09:00 08/11/21 08:19 Folic Acid 1 Mg Tablet PO 1 mg DAILY SAMUEL Administration Vancomycin HCl 1,500 mg in 500 mls @ 333.333 mls/hr 08/09/21 02:00 08/11/21 04:23 Vancomycin 1,500 Mg/D5w 500 Ml IVPB Infused Q12H SAMUEL Infusion Cefepime HCl 1 gm in 50 mls @ 100 mls/hr 08/09/21 02:00 08/11/21 09:38 Maxipime 1 Gm/D5w 50 Ml IVPB 100 mls/hr Q8H SAMUEL Administration Morphine Sulfate 2 mg 08/10/21 15:37 08/11/21 11:20 Morphine Sulfate (*Crx) 2 Mg/Ml Inj IV PUSH 2 mg Q4H PRN Administration Pain Rated 7-10 Ondansetron HCl 4 mg 08/08/21 15:44 Ondansetron Inj 4 Mg/2 Ml Vial IV PUSH Q4H PRN Nausea Silver 1 each 08/09/21 09:00 08/11/21 11:22 Silver Foam Band (Mepilex Ag 4x4) Bandage TOPICAL 1 each DAILY SAMUEL Administration Thiamine HCl 100 mg 08/09/21 09:00 08/11/21 08:19 Thiamine Hcl 100 Mg Tablet PO 100 mg QAM SAMUEL Administration Radiology Results: ITS Impressions Finger X-Ray 08/08/21 13:50 IMPRESSION: No acute osseous findings. Abdomen Ultrasound 08/09/21 08:42 IMPRESSION: 1. Normal right upper quadrant ultrasound. Labs Labs: Laboratory Results - last 24 hr 08/10/21 08/11/21 08/11/21 12:54 05:35 05:35 WBC 6.4 RBC 4.39 L Hgb 14.4 Hct 42.6 MCV 97.0 MCH 32.8 MCHC 33.8 RDW 13.4 Plt Count 202 MPV 9.5 Immature Gran % (Auto) 1.4 H Neut % (Auto) 48.9 Lymph % (Auto) 31.7 [place] % (Auto) 11.8 H Eos % (Auto) 5.3 H Baso % (Auto) 0.9 Lymph # (Auto) 2.02 [place] # (Auto) 0.8 H Eos # (Auto) 0.3 Baso # (Auto) 0.1 Abs Immat Gran (auto) 0.09 H Absolute Neuts (auto) 3.1 Absolute Nucleated RBC 0.0 Nucleated RBC % 0.0 Sodium 137 Potassium 4.0 Chloride 106 Carbon Dioxide 26 Anion Gap 5 L BUN 20 Creatinine 0.80 Estim Creat Clear Calc 92 Estimated GFR > 60 Glucose 121 H POC Capillary Glucose Calcium 8.3 L Magnesium
--- NOTE | 2021-08-11 11:55 | PM.IMPN ---
Progress Note: A&P Assessment and Plan (1) Thumb injury: Code(s): S69.90XA - Unspecified injury of unspecified wrist, hand and finger(s), initial encounter Status: Acute Assessment and Plan: Right thumb injury from 2x4s Purulent drainage Red tracking up to the armpit however it does not go onto the chest that is warm to touch Wound culture Group A streptococcus isolated, Raoultella Ornithinolytica Wound care consult Dr. Charles consulted thank you for your help Vanc and cefepime on board, look to be able to be switched to PO antibiotics at discharged WBC 6.4 Trend wound findings (2) Transaminitis: Code(s): R74.01 - Elevation of levels of liver transaminase levels Status: Acute Assessment and Plan: AST/ALT 50/102 Hep panel negative RUQ ultrasound Normal right upper quadrant ultrasound. (3) Tachycardia: Code(s): R00.0 - Tachycardia, unspecified Status: Acute Assessment and Plan: HR is 55 Probably pain induced Could be an underlying arrhythmia EKG ordered (4) HTN (hypertension): Code(s): I10 - Essential (primary) hypertension Status: Acute Assessment and Plan: BP is 105/71 Trend BP No history Consider adding therapy if indicated (5) ETOH abuse: Code(s): F10.10 - Alcohol abuse, uncomplicated Status: Acute Assessment and Plan: Roughly 24 drinks a week Folic acid and thiamine ordered CIWA Librium Ativan PRN (6) Marijuana abuse: Code(s): F12.10 - Cannabis abuse, uncomplicated Status: Acute Assessment and Plan: Daily use Cessation education given Time Spent With Patient Time with patient: Greater than 35 minutes Subjective Date/time seen: 08/11/21 1155 Interval history: Date/Time: 08/08/21 15:15 Narrative: Patient is a 61 year old male with no significant medical history that present to the ED for evaluation of the left thumb. He stated that he was working on his house and remodelling. He was moving some 2x4 when he smashed his thumb between two boards. He stated that it really just started to swell up, and to relieve the pressure he was taking a needle that he previously popped a pimple on his knee with dipped in Neosporin and would poke it into his finger to relieve the pressure. He stated that it was doing ok, until about when it was appearing worse. He stated that it started with severe pain. He noticed that he was developing redness tracking up his arm into the armpit and down starting on the chest. He was experiencing some sweats and chills lately. He currently rate his pain a 9/10 and it feels like needles are going in and out of his thumb. He has not taken anything or treating it with anything. He denies chest pain, shortness of breath, nausea, vomiting, diarrhea, constipation, weakness, fatigue, cough, dizziness, lightheadedness, numbness or tingling. Date/Time 08/09/21 1045 Patient's main concern was taking a shower. He did state that his thumb was a 10/10. Wound nurse was in the room and there was a lot of purulent drainage from the thumb. He did deny any chest pain, shortness of breath, nausea, vomiting, diarrhea, constipation, weakness or fatigue. He did also state that he wanted something to poke into the wound to relieve him of the pressure. He is currently sitting on the side of the bed with no complaints other than back pain. Red track has went down. Date/Time08/10/21 0930 Patient was pretty upset today. Patient stated that this morning the engineering lab technician came in and clicked the lights on his introduced herself for say she was click in the lytes. She then proceeded to grab his arm in which he grabbed his arm she had his thumb on the bedpost which then created pain and throbbing. He stated that he paced the room for well over 2 hour, then went and sat in the window seal when he was finally able to get
[2021-08-11 11:57] VITALS: O2SAT 98
[2021-08-11 14:00] VITALS: BP 140/84; PULSE 82; RESP 18; TEMP 37; O2SAT 94
[2021-08-11 16:44] LABS: Glucose Point of Care 109 mg/dl (65-105)
[2021-08-11 20:40] VITALS: O2SAT 97
[2021-08-11 21:00] VITALS: BP 109/75; PULSE 76; RESP 14; TEMP 36.4; O2SAT 95
[2021-08-12] MEDS: HYDROcodone/acetaminophen (*CRX) 5-325 MG TABLET 1 TAB PO ×2 (01:59→12:50)
[2021-08-12 05:37] VITALS: BP 122/87; PULSE 62; RESP 16; TEMP 36.5; O2SAT 97
[2021-08-12 05:45] LABS: Basophils Absolute Auto 0.1 K/mm3 (0.0-0.1); Basophils Percent Auto 1.1 % (0.2-1.2); Eosinophils Absolute Auto 0.4 K/mm3 (0-0.3); Eosinophils Percent Auto 5.1 % (0-4.4); Hematocrit 40.2 % (42.0-52.0); Hemoglobin 13.8 g/dL (14.0-18.0); Immature Granulocyte Absolute 0.14 K/mm3 (0.00-0.031); Immature Granulocyte Percent A 1.9 % (0-0.5); Lymphocytes Absolute Auto 2.03 K/mm3 (0.9-3.2); Lymphocytes Percent Auto 27.8 % (18.3-44.2); Mean Corpuscular HGB Conc 34.3 g/dl (32-36); Mean Corpuscular Hemoglobin 32.1 pg (26-34); Mean Corpuscular Volume 93.5 fl (80-100); Mean Platelet Volume 9.1 fl (7.4-10.4); Monocytes Absolute Auto 0.7 K/mm3 (0.1-0.6); Monocytes Percent Auto 9.8 % (2.6-8.5); Neutrophils Percent Auto 54.3 % (45.5-73.1); Platelet Count Result 223 k/mm3 (150-375); Red Cell Distribution Width 13.2 % (11.5-14.5); White Blood Count 7.3 K/mm3 (4.5-10.0)
[2021-08-12 06:33] LABS: Alanine Aminotransferase 82 U/L (4-50); Albumin Level 3.4 g/dL (3.5-5.1); Alkaline Phosphatase 82 U/L (38-126); Anion Gap 3 mmol/L (8-16); Aspartate Amino Transferase 37 U/L (17-59); Bilirubin,Total 0.3 mg/dL (0.2-1.3); Blood Urea Nitrogen 19 mg/dL (9-20); Calcium 8.4 mg/dL (8.4-10.2); Carbon Dioxide 27 mmol/L (22-30); Chloride 106 mmol/L (98-107); Estimated CRCL calculation 92 ml/min; Estimated Glomerular Filt Rate > 60; Glucose 108 mg/dL (65-110); Magnesium 2.1 mg/dL (1.6-2.3); Potassium 4.2 mmol/L (3.4-5.0); Sodium 136 mmol/L (137-145)
--- NOTE | 2021-08-12 08:15 | PM.DS ---
DS: Admitting Diagnosis Discharge Date 08/12/21814 Admitting Diagnosis Left thumb infection DS: Discharge Diagnosis Discharge Diagnosis (1) Thumb injury: Code(s): S69.90XA - Unspecified injury of unspecified wrist, hand and finger(s), initial encounter Status: Acute Assessment and Plan: Right thumb injury from 2x4s Purulent drainage Red tracking up to the armpit however it does not go onto the chest that is warm to touch Wound culture Group A streptococcus isolated, Raoultella Ornithinolytica Wound care consult Dr. Charles consulted thank you for your help Vanc and cefepime on board, look to be able to be switched to PO antibiotics at discharged WBC 6.4 Trend wound findings (2) Transaminitis: Code(s): R74.01 - Elevation of levels of liver transaminase levels Status: Acute Assessment and Plan: AST/ALT 50/102 Hep panel negative RUQ ultrasound Normal right upper quadrant ultrasound. (3) Tachycardia: Code(s): R00.0 - Tachycardia, unspecified Status: Acute Assessment and Plan: HR is 55 Probably pain induced Could be an underlying arrhythmia EKG ordered (4) HTN (hypertension): Code(s): I10 - Essential (primary) hypertension Status: Acute Assessment and Plan: BP is 105/71 Trend BP No history Consider adding therapy if indicated (5) ETOH abuse: Code(s): F10.10 - Alcohol abuse, uncomplicated Status: Acute Assessment and Plan: Roughly 24 drinks a week Folic acid and thiamine ordered CIWA Librium Ativan PRN (6) Marijuana abuse: Code(s): F12.10 - Cannabis abuse, uncomplicated Status: Acute Assessment and Plan: Daily use Cessation education given DS: Summary Hospital Course Hospital Course: Patient is a 61-year-old male with no significant past medical history who presented to the ED for evaluation of the left thumb. Patient was moving 2x4s and had smashed his thumb in between to 2x4s. He stated that it started to swell and he was leaving the swelling and pressure by poking it with a needle. Upon evaluation it was noted that the patient was having drainage from the wound site. Wound nurse did come in and see the patient and recommended silver gel. Dr. Charles was consulted and did a bedside nail removal. Wound cultures were taken and patient did grow Group A streptococcus isolated, Raoultella Ornithinolytica. Upon admission patient was started on IV vancomycin and cefepime. WBCs were noted to be a little bit elevated at greater than 12. White blood cells have been trending downward that currently 7.3 today. Susceptibility report did show the patient to be switched to oral antibiotics. Patient has a the has been monitored along with dressing changes daily. Patient was also noted to have transaminitis which ALT/AST Have been trending down and are at 37/82 today. Patient was also noted to be tachycardic and heart rate has decreased down to baseline. Patient was also counseled on alcohol abuse and marijuana abuse. Labs are stable and have remained stable throughout the visit. Vital signs are also stable and have remained stable throughout the visit. Patient was also noted to have systemic infection with a red line trending up to the arm and down the chest. It has dissipated. Right upper quadrant ultrasound was done which showed normal and no findings. Patient has a good appetite has been eating all his meals. Patient denies any chest pain, shortness of breath, nausea, vomiting, diarrhea, constipation, weakness, fatigue. Status at Discharge Functional status at discharge: independent ambulation Overall status at discharge: patient is progressing back to baseline Time Spent with Patient Time attestation: Total time spent providing and/or coordinating discharge services: 48 minutes Time spent: Greater than 30 minutes Specific disch
[2021-08-12] MEDS: FOLIC ACID 1 MG TABLET PO (08:53)
[2021-08-12] MEDS: THIAMINE HCL 100 MG TABLET PO (08:53)
[2021-08-12 14:00] VITALS: BP 112/76; PULSE 63; RESP 16; TEMP 35.7; O2SAT 97
== END 2021-08-12 15:35 | disposition home or self-care (01) | DRG 605 ==
LOC: ANHED 16:03 → ANH3MEDSUR 16:45
PROVIDERS: Admitting Provider Chiropractor; Emergency Provider Emergency Medicine; Visit Provider Nurse Practitioner
DX: S61.011A Laceration without foreign body of right thumb without damage to nail, initial encounter (principal); L08.9 Local infection of the skin and subcutaneous tissue, unspecified; B95.0 Streptococcus, group A, as the cause of diseases classified elsewhere; W23.1XXA Caught, crushed, jammed, or pinched between stationary objects, initial encounter; R74.01 Elevation of levels of liver transaminase levels; R00.0 Tachycardia, unspecified; I10 Essential (primary) hypertension; F10.10 Alcohol abuse, uncomplicated; F12.10 Cannabis abuse, uncomplicated
CPT/HCPCS: 36415; 73140; 76705; 80053; 80074; 80202; 82728; 82948; 83605; 83735; 85025; 87070; 87077; 87186; 87205; 90471; 90715; 93005; 96365; 96366; 96367; 96375; 99285; A9270; G0378; J0131; J0692; J1885; J2270; J3370

== ENCOUNTER 2021-08-16 10:32 | Outpatient (RCR) | payer OTHER, SELFPAY ==
[2021-08-16 10:15] VITALS: BMI 28.0
== END 2021-11-01 09:49 | disposition home or self-care (01) ==
LOC: ANHWOC 10:32
PROVIDERS: Visit Provider Plastic Surgery
DX: S60.321D Blister (nonthermal) of right thumb, subsequent encounter (principal)
CPT/HCPCS: 99212; G0463

== ENCOUNTER 2021-09-30 09:38 | Outpatient (CLI) | payer OTHER, SELFPAY ==
--- NOTE | 2021-09-30 11:00 | NEURO_ITS ---
Impression: # Complains of numbness and pain. # Left Carpal Tunnel Syndrome. # Right early ulnar neuropathy. # Normal needle/EMG exam. Nerve Conduction Studies Anti Sensory Summary Table Stim Site NR Peak (ms) P-T Amp (?V) Site1 Site2 Delta-P (ms) Dist (cm) Ruddy (m/s) Left Median Anti Sensory (2-3nd Digit) Wrist 3.9 18.5 Wrist 2-3nd Digit 3.9 14.0 36 Wrist 3.9 13.3 Wrist 2-3nd Digit 3.9 14.0 36 Right Median Anti Sensory (2-3nd Digit) Wrist 4.0 17.7 Wrist 2-3nd Digit 4.0 14.0 35 Wrist 3.6 47.8 Wrist 2-3nd Digit 4.0 14.0 35 Left Radial Anti Sensory (Base 1st Digit) Wrist 2.2 8.2 Wrist Base 1st Digit 2.2 0.0 Right Radial Anti Sensory (Base 1st Digit) Wrist 2.4 7.1 Wrist Base 1st Digit 2.4 0.0 Left Ulnar Anti Sensory (5th Digit) Wrist 3.0 55.7 Wrist 5th Digit 3.0 14.0 47 Right Ulnar Anti Sensory (5th Digit) Wrist 3.0 27.8 Wrist 5th Digit 3.0 14.0 47 Motor Summary Table Stim Site NR Onset (ms) O-P Amp (mV) Site1 Site2 Delta-0 (ms) Dist (cm) Ruddy (m/s) Left Median Motor (Abd Poll Brev) Wrist 4.9 0.9 Elbow Wrist 5.3 30.0 57 Elbow 10.2 2.0 Right Median Motor (Abd Poll Brev) Wrist 3.8 4.2 Elbow Wrist 6.2 31.0 50 Elbow 10.0 3.7 Left Ulnar Motor (Abd Dig Minimi) Wrist 3.2 6.8 A Elbow Wrist 5.5 32.0 58 A Elbow 8.7 4.1 Right Ulnar Motor (Abd Dig Minimi) Wrist 2.7 6.7 A Elbow Wrist 6.1 31.0 51 A Elbow 8.8 5.6 B Elbow Wrist 4.3 23.0 53 B Elbow 7.0 5.6 F Wave Studies NR F-Lat (ms) L-R F-Lat (ms) Left Median (Mrkrs) (Abd Poll Brev) 33.68 0.98 Right Median (Mrkrs) (Abd Poll Brev) 32.70 0.98 Left Ulnar (Mrkrs) (Abd Dig Min) 32.42 0.00 Right Ulnar (Mrkrs) (Abd Dig Min) 32.42 0.00 EMG Side Muscle Nerve Root Ins Act Fibs Amp Dur Recrt Comment Right 1stDorInt Ulnar C8-T1 Nml Nml Nml Nml Nml Right Ext Indicis Radial (Post Int) C7-8 Nml Nml Nml Nml Nml Right Ext Digitorum Radial (Post Int) C7-8 Nml Nml Nml Nml Nml Right BrachioRad Radial C5-6 Nml Nml Nml Nml Nml Right PronatorTeres Median C6-7 Nml Nml Nml Nml Nml Right Abd Poll Brev Median C8-T1 Nml Nml Nml Nml Nml Left 1stDorInt Ulnar C8-T1 Nml Nml Nml Nml Nml Left Ext Indicis Radial (Post Int) C7-8 Nml Nml Nml Nml Nml Left Ext Digitorum Radial (Post Int) C7-8 Nml Nml Nml Nml Nml Left BrachioRad Radial C5-6 Nml Nml Nml Nml Nml Left PronatorTeres Median C6-7 Nml Nml Nml Nml Nml Left Abd Poll Brev Median C8-T1 Nml Nml Nml Nml Nml MTDD
== END 2021-09-30 09:39 | disposition home or self-care (01) ==
PROVIDERS: PCP Family Medicine; Visit Provider Plastic Surgery
DX: G56.02 Carpal tunnel syndrome, left upper limb (principal); G56.21 Lesion of ulnar nerve, right upper limb; R53.83 Other fatigue; R20.0 Anesthesia of skin
CPT/HCPCS: 95886; 95911

== ENCOUNTER 2021-10-14 01:41 | Day surgery (SDC) | payer SELFPAY ==
[2021-10-13 08:31] VITALS: BMI 27.6
--- NOTE | 2021-10-13 08:35 | PC.NURSE ---
Report to the Outpatient Waiting Room, entrance under the green pavilion located off [facility], at time _1130 on date __10/14/21 . OR Time: ___1230 . - You and your visitor will be asked a series of questions to screen for COVID 19 for your protection. - Only one visitor is allowed at this time. - The patient visitor is requested to leave or wait in car when not with patient. - A mask is required within the hospital. Patients may have clear liquids (water, carbonated beverages, clear teas, apple juice) until 3 hours prior to surgery with a maximum of 20 ounces. - No food from midnight until time of surgery - Infants may have breast milk until 4 hours before surgery, formula 6 hours prior to surgery. - Children will be allowed to drink immediately following surgery. If applicable, please bring a bottle or sippy cup to assist with drinking. Juice, water, soda, and popsicles are readily available. For infants on formula, please bring formula the day of surgery. Pacifiers are allowed. Take the following medications with a SIP of water the morning of surgery: __NONE Medications to discontinue per physician NONE Date to take last dose NONE Please no make-up, nail macanese, hairspray, perfume, deodorant, or body powder the day of surgery. No jewelry (including any body piercings) or valuables the day of surgery, leave them at home. Please take a shower or bath the night before, or the morning of, surgery with an antibacterial soap. Wear comfortable, loose fitting clothing. Children are encouraged to wear pajamas. - Jewelry must be removed prior to entering the operating room. Rings and piercings that are not removed may be cut off. - The hospital will not accept responsibility for valuables. - Please leave all valuables, including medications, at home the day of surgery. If you are going home after surgery, a licensed bung driver must drive you home. - NO public transportation without another adult. - We recommend that an adult stay with you for 24 hours following discharge. - We also recommend that you do not drive, make important decision, drink alcoholic beverages, or take any drugs that were not prescribed by your health care provider for at least 24 hours after your discharge time. For Pediatric surgeries, we recommend two adults accompany the child home (only one inside the building at this time). Follow any additional instructions given to you from your surgeon. If you or anyone in your household have experienced Covid symptoms in the past week, please notify your surgeon or the nurse liaison at the phone number below for possible testing. Telephone instructions given to ___PATIENT and asked if any additional questions and then verbalized understanding. Patient advised to call surgeon office or pre surgery nurse liaison [phone] if any additional questions.
--- NOTE | 2021-10-14 06:59 | WPDHPUPDATE1 ---
History and Physical Update Update Date/Time: 10/14/21 06:59 History and Physical has been reviewed, including an updated exam of the patient. There are NO changes in the patient's condition. Risks, benefits, and alternatives have been discussed and questions answered. Patient agrees to proceed with procedure.
[2021-10-14 13:20] VITALS: BP 131/86; PULSE 80; RESP 16; TEMP 37; O2SAT 99
[2021-10-14 14:04] VITALS: BP 122/84; PULSE 70; RESP 16; O2SAT 95
[2021-10-14 14:17] VITALS: BP 117/80; PULSE 70; RESP 16; O2SAT 95
[2021-10-14 14:27] VITALS: BP 124/81; PULSE 76; RESP 17; O2SAT 97
[2021-10-14] MEDS: BACITRACIN OINTMENT 15 GM TUBE 1 APPLIC TOPICAL (14:29)
[2021-10-14] MEDS: LIDO 1%/EPINEPHRINE 1:100,000 50 ML VIAL INFILTRATE (14:31)
[2021-10-14 14:37] VITALS: BP 125/84; PULSE 71; RESP 18; O2SAT 96
[2021-10-14 14:44] VITALS: BP 122/91; PULSE 72; RESP 16; O2SAT 99
--- NOTE | 2021-10-14 14:58 | W.PM.PROC2 ---
Procedure Note - Detailed Date of Procedure 10/14/21 Pre-op Diagnosis Left carpal tunnel syndrome Post-op Diagnosis Same Procedure Performed Left open carpal tunnel release Surgeon Konrad Charles MD Anesthesia Local Description of Procedure The left carpal tunnel was marked on patient's wrist in holding area. He was taken to the operating room where he was placed supine on the operating table. A time-out was held confirmed. The extremity was prepped and draped in usual fashion. The appropriate area was anesthetized with 1% lidocaine with epinephrine. The tourniquet was inflated to 250 mmHg. The incision was made in the palm as marked and dissection was carried bluntly through the subcutaneous tissue to the palmar fascia. This was fairly thin in his case but was entered and the flexor retinaculum was identified and incised with a 15 blade. Under direct vision that was lysed proximally and then distally to completely release it. There was no unusual anatomy noted. The skin was closed with interrupted 4-0 nylon suture. The usual bandage was applied the patient tourniquet was released at the time closure began. The discharged with instructions in wound care and follow-up and a prescription for hydrocodone 7. Estimated Blood Loss 2 Drains No Packing No Pathology None sent Complications No immediate complications Condition Stable Disposition Same day
== END 2021-10-14 15:03 | disposition home or self-care (01) ==
PROVIDERS: PCP Family Medicine; Visit Provider Plastic Surgery
PROC: (CPT 64721; principal; 2021-10-14 14:00)
DX: G56.02 Carpal tunnel syndrome, left upper limb (principal); R20.0 Anesthesia of skin
CPT/HCPCS: 64721; A9270